=== PATIENT | female | born 1945 | race Caucasian/White ===

== ENCOUNTER → 2021-11-01 | Day surgery (SDC) | payer OTHER, MEDICAID ==
[2021-10-30 10:51] LABS: COVID AG,FIA SOURCE NASAL SWAB
[~2021-11-01] VITALS: Ht 165.1 cm; Wt 72.6 kg
[~2021-11-01] MED LIST: ACET-2247 PO; ATOR40TA28 PO; BALANCED SALT 15 ML OPHTHALMIC IRRIG.SOLN OS ONE; CHONDR SULF A SOD/HYALURONATE 1.05 ML KIT IO ONE; CLOP75TA60 PO; EPINEPHrine 1:1,000 [1 MG/ML] VIAL IM ONE; FAMO20 PO; FERR325T27 PO; FEXO-353 PO; FLUT110H IH; FURO20 PO; FentaNYL CITRATE PF 100 MCG/2 ML VIAL IVP ONE; KETOROLAC TROMETHAMINE 0.5% 5 ML OPHTHALMIC SOLUTION ONE; LIDOCAINE/PF 1% 2 ML VIAL IM ONE; LOSA-382 PO; METO-558 PO; MIDAZOLAM HCL 2 MG/2 ML VIAL IVP ONE; MOXIFLOXACIN HCL 0.5% 3 ML OPHTHALMIC SOLUTION ONE; NITR0.4T52 SL; PANT-31 PO; PHENYLEPHRINE HCL 2.5% 2 ML OPHTHALMIC SOLUTION ONE; RINGERS SOLUTION,LACTATED 500 ML IV ONE; TETRACAINE HCL/PF 0.5% 4 ML OPHTHALMIC SOLUTION OS ONE; TIOT185 IH; TROPICAMIDE 1% 2 ML OPHTHALMIC SOLUTION ONE; URSO500T10 PO; VIT1CAPS47 PO
[2021-11-01] MEDS: KETOROLAC TROMETHAMINE 0.5% 5 ML OPHTHALMIC SOLUTION OS SCH ×3 (09:54→10:05)
[2021-11-01] MEDS: MOXIFLOXACIN HCL 0.5% 3 ML OPHTHALMIC SOLUTION OS SCH ×3 (09:54→10:05)
[2021-11-01] MEDS: PHENYLEPHRINE HCL 2.5% 2 ML OPHTHALMIC SOLUTION OD SCH ×3 (09:55→10:05)
[2021-11-01] MEDS: TROPICAMIDE 1% 2 ML OPHTHALMIC SOLUTION OS SCH ×3 (09:55→10:05)
== END | disposition still patient (30) ==
LOC: SURGERY 08:35
PROVIDERS: ATTEND Ophthalmology
DX: H25.12 Age-related nuclear cataract, left eye (principal); E78.00 Pure hypercholesterolemia, unspecified; I10 Essential (primary) hypertension; J43.9 Emphysema, unspecified; I25.2 Old myocardial infarction; E78.5 Hyperlipidemia, unspecified; M19.90 Unspecified osteoarthritis, unspecified site; Z80.8 Family history of malignant neoplasm of other organs or systems; Z98.890 Other specified postprocedural states; Z79.899 Other long term (current) drug therapy; Z87.891 Personal history of nicotine dependence; Z88.6 Allergy status to analgesic agent; Z95.5 Presence of coronary angioplasty implant and graft
CPT/HCPCS: 66984; 87426; 93005; C9803; J0171; J2250; J3010; J3490; J7120; Q9967; V2632